=== PATIENT | female | born 1995 | race Hispanic/Latino ===

== ENCOUNTER 2020-07-29 17:54 | Day surgery (SDC) | payer SELFPAY ==
[2020-07-29] MEDS ORDERED: hydrALAZINE 20 MG/ML VIAL SLOW IVP PRN (18:33)
[2020-07-29 18:42] VITALS: BMI 24.2
[2020-07-31 20:08] LABS: Chlamydia by PCR Not Detected (NotDetected); GC by PCR Not Detected (NotDetected)
[2020-08-02 01:08] LABS: HSV-2 IgG Type Specific Less than 0.91 index (0.00-0.90)
== END 2020-07-29 20:17 | disposition home or self-care (01) ==
LOC: CSHLD/OP 17:54
PROVIDERS: ATTEND Obstetrics & Gynecology
DX: O26.892 Other specified pregnancy related conditions, second trimester (principal); L29.2 Pruritus vulvae; Z3A.19 19 weeks gestation of pregnancy
CPT/HCPCS: 86694; 86695; 86696; 87480; 87491; 87510; 87529; 87591; 87660; 99285